=== PATIENT | male | born 1975 | race Caucasian/White ===

== ENCOUNTER 2019-11-23 17:06 | Emergency (ER) | payer BC, OTHER ==
[~2019-11-23] VITALS: Ht 182.8 cm; Wt 93.5 kg
[2019-11-23 17:45] VITALS: BP 126/82
[2019-11-23 18:00] VITALS: BP 131/86
[2019-11-23] MEDS ORDERED: Tumeric (18:01)
[2019-11-23] MEDS ORDERED: Zinc (18:01)
[2019-11-23] MEDS ORDERED: Vitamin D (18:01)
[2019-11-23] MEDS ORDERED: Fish Oil (18:01)
[2019-11-23] MEDS ORDERED: Magnesium (18:01)
[2019-11-23] MEDS ORDERED: Multivitamin (18:01)
[2019-11-23] MEDS ORDERED: Probiotic (18:01)
[2019-11-23 18:15] VITALS: BP 126/82
[2019-11-23 18:20] VITALS: BP_SYST 124; BP_SYST 130; BP_DIAS 82; BP_DIAS 90
[2019-11-23 18:30] VITALS: BP 123/87
--- NOTE | 2019-11-23 18:51 | ED Cardiac General ---
History of Present Illness General Chief Complaint: Cardiac/General Problems Stated Complaint: HIGH BP Nursing Triage Note: Pt ambulatory to ED reporting symptoms of high blood pressure but reports only has been borderline diagnosed at times. Pt has mild head pressure on bilat sides and used a decongestant on . Pt states his left arm/left leg get "constricted" sometimes and he notices engorged veins in L arm. reports pt does have some snoring with apneic spells while sleeping that she wakes him up for. Source: patient, family () Exam Limitations: no limitations History of Present Illness Date Seen by Provider: Nov 23, 2019 Time Seen by Provider: 17:30 Initial Comments 44-year-old male presents to the emergency room with symptoms of elevated pressure and reports that he has occasional headaches. Patient states that his blood pressures have been running between 150/90-150/100 in the home setting. Blood pressure was taken in the emergency room his blood pressure is 124/82 in the right arm and 130/90 in the left arm. Patient is a and has not [facility] through [facility]. Patient states that his left arm and left leg sometimes feels constricted but he has full range of motion no evidence of muscle weakness. 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 PT's pharmacy as well as [place]. 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 states he does snore and has some episodes of sleep apnea but this needs to be evaluated with a sleep study. These evaluations are available through the [facility]. Patient has a prior history of borderline hypertension he has never been treated with medications for this. He takes multiple supplements and vitamins including magnesium zinc vitamin D Fish oil turmeric multivitamins and probiotics. Patient does not smoke drink or use drugs. He has not had the flu or pneumonia vaccination. His primary care physician is Dr. Segura Patient has given informed consent for diagnostic and therapeutic services but upon review the patient has agreed to [facility]. He has no history of ischemic heart disease is present and supportive. he has agreed to follow-up with the [facility] program which is associated with the [facility]. Timing/Duration: 4-5 days Severity: mild Location: other (she reports vague symptoms of elevated blood pressure although his blood pressure was not elevated at the time of evaluation in the emergency room.) Activities at Onset: none Prior CP/Workup: no prior chest pain, no prior cardiac workup, non-cardiac Modifying Factors: improves with movement NTG SL HUMAN FACTORS SPECIALIST: No ASA po HUMAN FACTORS SPECIALIST: No Associated Systoms: Headaches (the sensation of his left arm and leg feeling constricted but on examination showed no abnormality or lateralizing. Patient does have history of potential obstructive sleep apnea.) Allergies and Home Medications Patient Home Medication List Home Medication List Reviewed: Yes Review of Systems Review of Systems Constitutional: malaise, weakness EENTM: No Symptoms Reported Respiratory: No Symptoms Reported Cardiovascular: Lightheadedness Gastrointestinal: No Symptoms Reported Genitourinary: No Symptoms Reported Musculoskeletal: muscle stiffness, muscle weakness Skin: no symptoms reported Psychiatric/Neurological: Anxiety, Other (history of combat exposure and has agreed to follow up with the 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) Contact w/Someone Who Travel: No Recent Infectious Disease Expo: No Recent Hopitalizations: No Physical Abuse: No Sexual Abuse: No Mistreated: No Fear: No Immunizations Up To Date Tetanus Booster (TDap): Unknown Seasonal Allergies Seasonal Allergies: No Past Medical History Surgeries: Yes Gallbladder Respiratory: No Cardiac: Yes ("Borderline HTN") Neurological: No Genitourinary: No Gastrointestinal: No Musculoskeletal: No Endocrine: No HEENT: No Cancer: No Psychosocial: No Integumentary: No Blood Disorders: No Physical Exam Vital Signs Vital Signs - First Documented 11/23/19 17:27 Temp 36.6 Pulse 77 Resp 18 B/P (MAP) 130/83 (99) Pulse Ox 99 O2 Delivery Room Air Capillary Refill : Less Than 3 Seconds Height, Weight, BMI Height: '" Weight: lbs. oz. kg; 27.00 BMI Method: General Appearance: No Apparent Distress, WD/WN, Anxious HEENT: PERRL/EOMI, Normal ENT Inspection, Pharynx Normal, Moist Mucous Membranes Neck: Full Range of Motion, Normal Inspection, Non Tender, Supple Respiratory: Chest Non Tender, Lungs Clear, Normal Breath Sounds, No Accessory Muscle Use, No Respiratory Distress Cardiovascular: Regular Rate, Rhythm, No Edema, No Gallop, No JVD, No Murmur, Normal Peripheral Pulses Gastrointestinal: Normal Bowel Sounds, No Organomegaly, No Pulsatile Mass, Non Tender, Soft Extremity: Normal Capillary Refill, Normal Inspection, Normal Range of Motion, Non Tender, No Calf Tenderness Neurologic/Psychiatric: Alert, Oriented x3, No Motor/Sensory Deficits (BUT anxious), care manager II-XII Norm as Tested Skin: Normal Color, Warm/Dry Lymphatic: No Adenopathy Progress/Results/Core Measures Results/Orders Vital Signs/I&O 11/23/19 17:27 Temp 36.6 Pulse 77 Resp 18 B/P (MAP) 130/83 (99) Pulse Ox 99 O2 Delivery Room Air Blood Pressure Mean: 99 Departure Impression Primary Impression: Elevated blood pressure reading Disposition: HOME, SELF-CARE (follow-up with Dr. Segura and with the [facility] she may benefit from a sleep study) Condition: Stable Departure-Patient Inst. Referrals: JUSTIN SEGURA MD (PCP/Family) Primary Care Physician Patient Instructions: High Blood Pressure in Adults, Medicines for High Blood Pressure ZOILA HOYOS DO Nov 23, 2019 18:51
[2019-11-23 19:02] VITALS: BP 123/87
--- NOTE | 2019-11-23 19:02 | NUR ---
Pt departed from Er after review of homw instructions read and reviewed. Questions answered per Dr Strickland with good advice about the utilization of pt's [facility] benefits in local [place]. Pt has a PCP Dr Us in which also to follow up with. Pt and spouse verbalize no further questions and no verbalized c/o's.
== END 2019-11-23 19:02 | disposition home or self-care (01) ==
LOC: ER FS 17:08
DX: R03.0 Elevated blood-pressure reading, without diagnosis of hypertension (principal)
CPT/HCPCS: 99283